=== PATIENT | female | born 1995 | race Caucasian/White ===

== ENCOUNTER 2022-01-24 18:05 | Emergency (ER) | payer OTHER ==
[~2022-01-24] VITALS: Ht 152.4 cm; Wt 45.4 kg
[~2022-01-24 18:05] MED LIST: ARIP5TAB8 PO
[2022-01-24 18:09] VITALS: BP 91/71
--- NOTE | 2022-01-24 18:16 | NUR ---
Note elianaone in EDM - 01/24/22 at 1909 by HENRIQUE NO USRING CARE GIVEN-Patient discharged with v/s stable. Written and verbal after care instructions given and explained. Patient alert, oriented and verbalized understanding of instructions. Police with in custody. All questions addressed prior to discharge. ID band removed. Patient advised to follow up with PMD. NO Rx of given. Patient educated on indication of medication including possible reaction and side effects. Opportunity to ask questions provided and answered.
--- NOTE | 2022-01-24 18:16 | NUR ---
-Patient discharged with v/s stable. Written and verbal after care instructions given and explained. Patient alert, oriented and verbalized understanding of instructions. Ambulatory with steady gait. All questions addressed prior to discharge. ID band removed. Patient advised to follow up with PMD. NO Rx given. Patient educated on indication of medication including possible reaction and side effects. Opportunity to ask questions provided and answered.
[2022-01-24 18:17] VITALS: BP 91/71
== END 2022-01-24 18:17 ==
LOC: MED 18:05
DX: Z00.00 Encounter for general adult medical examination without abnormal findings (principal); Z79.899 Other long term (current) drug therapy
CPT/HCPCS: 99283